=== PATIENT | male | born 2005 | race Caucasian/White ===

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

== ENCOUNTER 2025-08-28 22:10 | Emergency (ER) | payer BC, SELFPAY ==
[2025-08-28 22:10] VITALS: BP 164/89; PULSE 82; RESP 18; TEMP 36.8; O2SAT 99; BMI 29.7
[2025-08-28 22:35] VITALS: O2SAT 98
--- NOTE | 2025-08-28 22:35 | EKG12_ITS ---
Test Reason : CP Blood Pressure : */* mmHG Vent. Rate : 80 BPM Atrial Rate : 80 BPM P-R Int : 150 ms QRS Dur : 92 ms QT Int : 376 ms P-R-T Axes : 46 30 34 degrees QTcB Int : 433 ms Normal sinus rhythm Normal ECG Confirmed by Bhavik Chung ([id number]), web content editor GENET HAYDEN ([id number]) on 08/29/2025 8:34:36 AM Referred By: UG Confirmed By: Bhavik Chung
--- NOTE | 2025-08-28 22:36 | ED.VIS.CHEST ---
HPI History of Present Illness Chief Complaint: Chest Pain Informant: patient and parent Onset/Context/Timing Onset: Today Activity at onset: gradual Timing: Continuous Quality: Positive for Pain, Sharp and Stabbing Location: Left Parasternal Current Severity: Mild Maximum Severity: Mild Worsened By: Nothing Relieved By: Nothing Associated Symptoms: Positive for Dyspnea; Negative for Nausea, Vomiting, Cough, Fever, Lightheadedness, Acid Reflux or Palpitations Narrative Narrative: 20-year-old male history of ADHD. No prior cardiac history. States today while at the [employer] game at rest he got left-sided chest pain radiates to his neck and shoulder. Mild shortness of breath. No nausea no diaphoresis. Nonexertional. He said it is 1 or 2 other times. No history of DVT or PE does travel sometimes for work to [place]. He denies any calf pain or swelling. The pain is not pleuritic. Nothing particular makes it better or worse. He has never had pericarditis. He denies any fever chills or recent illness. He does take testosterone. Prior Similar Symptoms: Yes Recent Illness/Hospitalization: No CVD Risk Factors: Negative for Hypertension, Diabetes, Hypercholesterolemia, Family History 1' </=55 or Smoking PE Risk Factors: Positive for Recent Travel/Surgery; Negative for Recent Immobilization, Prior DVT or PE, Cancer or OCP + Smoking + >/=35 TAD Risk Factors: Negative for Marfan's Syndrome [facility] Medical History (Updated 08/28/25 @ 23:02 by Sejal Lujan) Testicular cancer ADHD SLAP lesion of right shoulder Hx of fracture of arm Home Medications ?Medication ?Instructions ?Recorded ?Last Taken ?Type testosterone cypionate 200 mg/mL 400 mg IM MOTH 08/28/25 Unknown History intramuscular syringe (Azmiro) Allergy/AdvReac Type Severity Reaction Status Date / Time No Known Allergies Allergy Verified 08/28/25 22:11 Family History Grandfather Heart disease Grandmother Breast cancer Social History household members: family Smoking Status: Never smoker alcohol intake: never ROS ROS ED ROS Narrative Nonexertional chest pain. No recent illness. Constitutional Constitutional ED: Denies chills or fever(s) Eyes Eyes: Reports none ENT ENT ED: Denies ear pain Cardiovascular Cardiovascular: Reports as per HPI and chest pain; Denies palpitations or racing heartbeat Respiratory/Chest Respiratory/Chest: Reports dyspnea; Denies cough Gastrointestinal Gastrointestinal: Denies abdominal pain, constipation, diarrhea, melena, nausea or vomiting Genitourinary Genitourinary ED: Denies dysuria or hematuria Musculoskeletal Musculoskeletal: Denies arthralgias Integumentary Denies abscess Neurologic Neurologic: Denies headache(s) Psychiatric Psychiatric: Denies anxiety Endocrine Endocrinology: Denies cold intolerance Hematologic/Lymphatic Hematologic/Lymphatic: Denies easy bleeding or easy bruising Allergic/Immunologic Allergic/Immunologic ED: Denies mouth swelling, tongue swelling or urticaria EXAM Physical Exam Narrative Exam Narrative: Well-appearing 20-year-old male accompanied by his mom vital signs are stable afebrile. Pulse ox 99% on room air no hypoxia. He is in no distress he clinically looks well. H EENT exam pupils round react light. Moist mucous membranes. Neck nontender no JVD. No lymphadenopathy. Back nontender. Lungs clear to auscultation bilaterally. Heart regular rhythm no murmur. Rate about 80. Chest wall and ribs nontender. No ecchymosis or bruising. No rash. No reproducible pain. Abdomen soft, nontender, nondistended, normal bowel sounds without peritoneal signs. Moving all 4 extremities. Calves are nontender without edema or cords. Equal symmetrical radial pulses. 5-5 door trimmer strength. Dorsi plantarflexion intact. Neurologically he is awake alert. Answering questions following commands. Const Vital Signs: 08/28/25 22:10 08/28/25 22:35 08/28/25 23:03 Temperature 98.2 F Temperature Source Oral Pulse Rate 82 Respiratory Rate 18 Respiratory Effort Normal Non-Labored Blood Pressure 164/89 H Blood Pressure Mean 114 Pulse Ox 99 98 Oxygen Delivery Method Room Air Room Air 08/28/25 23:10 Temperature Temperature Source Pulse Rate 63 Respiratory Rate 17 Respiratory Effort Blood Pressure 128/94 H Blood Pressure Mean 105 Pulse Ox 97 Oxygen Delivery Method Room Air MDM MDM MDM Narrative Medical decision making narrative: 20-year-old male atypical nonreproducible chest pain. No cardiac history and no significant cardiac history except in a grandfather. Is not exertional. No history of DVT or PE. Only risk factors he does travel for work. Cardiac workup with a D-dimer obtained. Repeat exam patient doing well around 12:05 PM. Went over his test results. Discussed with both he and his mom. Repeat exam is normal and unchanged. Lungs are clear. Heart regular rhythm no murmur. I explained him I do not a specific cause for his pain but it does not appear to be a blood clot or cardiac in nature. They are comfortable being discharged home. Motrin for pain. Outpatient follow-up. History & Record Review Discussion w/independent historian: Patient and Family Additional record(s) reviewed:: Prior outpatient record, Prior ED visit and Prior labs Lab Data Attestation: I reviewed the patient's lab results. Lab results narrative: CBC normal. White count 6. H&H of 15 and 47. Platelets 175. Electrolytes unremarkable gap 9. Normal BUN and creatinine. Glucose 109. Troponin is normal also less than 0.27. Troponin 6. Chest x-ray is normal. Labs: Laboratory Results - last 24 hr 08/28/25 22:46 WBC 6.1 RBC 5.21 Hgb 15.8 Hct 47.2 MCV 90.6 MCH 30.3 MCHC 33.5 RDW Std Deviation 40.5 RDW Coeff of [place] 12.2 Plt Count 175 MPV 9.8 Immature Gran % (Auto) 0.200 Neut % (Auto) 62.2 Lymph % (Auto) 27.8 Person % (Auto) 8.0 Eos % (Auto) 1.1 Baso % (Auto) 0.7 Absolute Neuts (auto) 3.8 Absolute Lymphs (auto) 1.69 Nucleated RBC % 0 Sodium 140 Potassium 4.1 Chloride 103 Carbon Dioxide 28.1 Anion Gap 9 BUN 11 Creatinine 1.16 Estim Creat Clear Calc 109.88 Est GFR (MDRD) Non-Af 92 BUN/Creatinine Ratio 9.8 L Glucose 109 H Calcium 9.3 Troponin T High Sens 6 Radiography Chest X-Ray - ED: 2 View, Read by ED Physician, Read by Radiologist, Normal, Heart, Lungs, Mediastinum, Bony Structures and No Acute Disease Diagnostic Testing: Clinical Impression(s) from Imaging Studies Chest X-Ray 08/28/25 22:50 IMPRESSION: No focal consolidations. Reading Location: [id number] Chest x-ray, 2 views, AP lateral, interpreted both by myself and radiology shows no acute abnormality. Normal cardiac silhouette. Normal mediastinum. Normal lung matt. No pneumothorax. No acute bony abnormalities. Rhythm Strip Rhythm Strip: Sinus Rhythm Rate: 80 Ectopy: None EKG Initial EKG: Attestation: I personally reviewed and interpreted this EKG as follows: Interpretation: Sinus Rhythm and No Acute Injury Pattern Comments: Normal sinus rhythm rate 80 no acute signs of KS or anemia. No S1Q3T3 T3. Discharge Plan Triage Chief Complaint: Chest Pain ED Provider: Bryan Chau Dx/Rx/DC Orders Clinical Impression: Chest pain Instructions: ED Chest Pain, Uncertain Cause Prescriptions: No Action Azmiro 200 mg/mL syringe 400 mg IM MOTH Primary Care Provider: Care Physician,No Primary Referrals: Balbina Mejia MD [Non-Staff, Pediatrics] - 3-5 Days if not improving Care Physician,No Primary [Primary Care Provider, Medical] Activity Restrictions/Additional Instructions: Your tests, EKG and chest x-ray all look good tonight. No specific cause for your discomfort. Motrin for pain. If not improving follow-up with your primary care physician. Print Language: Trinid[place] Disposition Disposition: Home, Self Care
--- NOTE | 2025-08-28 22:50 | RAD_ITS ---
PROCEDURE: CHEST PA AND LATERAL 08/28/2025 REASON FOR EXAM: CHEST PAIN TECHNIQUE: Procedure Code: RADCXR Modality: DX Procedure: CHEST PA AND LATERAL FINDINGS: No focal consolidation. No pleural effusion or pneumothorax. Cardiac silhouette is within normal limits. No acute fractures. RAD/Chest PA and Lateral IMPRESSION: No focal consolidations. Reading Location: [id number]
[2025-08-28 22:55] LABS: Hematocrit 47.2 % (40-54); Hemoglobin 15.8 g/dL (13.0-16.5); Immature Granulocytes Count 0.010 X10^3/uL (0.0-0.0); Mean Corp Hgb Conc 33.5 g/dL (32-36); Mean Corpuscular Volume 90.6 fL (80-94); Mean Platelet Vol. 9.8 fl (6.2-12.0); NRBC Flagged by Analyzer 0 % (0-5); Platelet Count 175 K/mm3 (150-450); RBC Distribution Width CV 12.2 % (11.6-14.6); RBC Distribution Width SD 40.5 fl (35.1-43.9); Red Blood Count 5.21 M/mm3 (4.6-6.2); White Blood Count 6.1 K/mm3 (4.4-11.0)
--- OUTSIDE RECORDS SUMMARY | 2025-08-28 23:05 | XMS RPT_ITS | CCD ---
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 Leslie Mejia Primary Care Provider Dr. Leslie Mejia Referring Provider MD Akhil Banerjee Attending Provider Leslie Mejia MD Primary Care Provider Akhil Banerjee Attending Unavailable Roberto, Leslie Primary Care Unavailable Roberto, Leslie Referring Unavailable Roberto, Leslie Primary Care Unavailable Edward Arcos Attending Unavailable Edward Arcos Referring Unavailable Roberto, Leslie Primary Care Unavailable Mauricio Richards Attending Unavailable Roberto PEREZ, Leslie Primary Care Provider ROBERTO, LESLIE Primary Care Unavailable ROBERTO, LESLIE Referring Unavailable ROBERTO, LESLIE Primary Care Unavailable ROBERTO, LESLIE Attending Unavailable ROBERTO, LESLIE Primary Care Unavailable ROBERTO, LESLIE Attending Unavailable ROBERTO, LESLIE Primary Care Unavailable ROBERTO, LESLIE Attending Unavailable Medications Current Medications Medication Drug Class(es) Dates Sig (Normalized) Sig (Original) 24 hr amphetamine aspartate 5 mg / amphetamine sulfate 5 mg / dextroamphetamine saccharate 5 mg / dextroamphetamine sulfate 5 mg extended release oral capsule (20 sources) Central Nervous System Stimulant Start: 01-19-2024 End: 05-06-2024 take 1 tablet by mouth once daily dextroamphetamine- amphetamine (ADDERALL) 5 mg tablet Indications: Attention deficit hyperactivity disorder (ADHD), combined type Take 1 tablet by mouth once daily for 30 days. 30 tablet 0 01/19/2024 05/06/2024 Discontinued Start: 05-21-2022 dextroamphetam ine-amphetamine (ADDERALL) 20 mg tablet Take by mouth. 0 05/21/2022 Active Start: 09-06-2021 End: 08-04-2024 amphetamine-dextroamphetamin e XR (ADDERALL XR) 20 mg capsule Indications: Attention deficit hyperactivity disorder (ADHD), combined type Take 1 capsule by mouth once daily for 30 days. Patient should start on July 05, 2024. 30 capsule 0 07/05/2024 08/04/2024 Active Comment on above: Take 1 capsule by mo uth once daily for 30 days. Take 1 capsule by mo uth once daily for 30 days. Do not start before June 15, 2022. Take 1 capsule by mo uth once daily for 30 days. Do not start before July 15, 2022. Take 1 capsule by mo uth once daily for 30 days. Do not start before December 05, 2021. Take 1 capsule by mo uth once daily for 30 days. Do not start before January 04, 2022. Take 1 capsule by mo uth once daily for 30 days. Do not start before December 25, 2022. Take 1 capsule by mo uth once daily for 30 days. Do not start before January 24, 2023. Take 1 capsule by mo uth once daily for 30 days. Do not start before April 27, 2023. Take 1 capsule by mo uth once daily for 30 days. Do not start before March 28, 2023. Take 1 capsule by mo uth once daily for 30 days. Do not start before August 28, 2023. Take 1 capsule by mo uth once daily for 30 days. Do not start before September 27, 2023. Take 1 capsule by mo uth once daily for 30 days. Do not start before December 28, 2023. Take 1 capsule by mo uth once daily for 30 days. Do not start before November 27, 2023. cephalexin 500 mg oral capsule (1 source) Cephalosporin Antibacterial Start: 07-29-20 End: 08-05-20 take 1 capsule by mouth three times daily cephALEXin (KEFLEX) 500 mg capsule Indications: Local infection of skin and subcutaneous tissue Take 1 capsule by mouth three times a day for 7 days. 21 capsule 0 07/29/2023 08/05/2023 Active Comment on above: Take 1 capsule by mo uth three times a day for 7 days. erythromycin 0.005 mg/mg ophthalmic ointment (1 source) Macrolide, Macrolide Antimicrobial Start: 11-13-19 Erythromycin Active 1 APPLIC RIGHT EYE EVERY 6 HOURS 3.5 5 November 13, 2023 12:00am Completed/Discontinued Medications Medication Drug Class(es) Dates Sig (Normalized) Sig (Original) acetaminophen 24 mg/ml / codeine phosphate 2.4 mg/ml oral solution (6 sources) Opioid Agonist Start: 03-29-2016 End: 06-11-2019 take 1 mL by mouth every four hours as needed Acetaminophen-Codein e Discontinued 12.5 ML PO EVERY 4 HOURS NEEDED 7 March 28, 2016 11:00pm June 11, 2019 6:31am acetaminophen 21.7 mg/ml / HYDROcodone bitartrate 0.5 mg/ml oral solution (3 sources) Opioid Agonist Start: 03-28-2016 End: 06-11-2019 take 1 mL by mouth every four hours as needed Hydrocodone-Acetamin ophen Discontinued 5 ML PO EVERY 4 HOURS NEEDED 120 March 27, 2016 11:00pm June 11, 2019 6:31am causes drowsiness omeprazole 20 mg disintegrating oral tablet (1 source) Proton Pump Inhibitor Start: 09-17-2019 End: 05-16-2022 take 1 tablet by mouth once daily omeprazole 20 mg disintegrating tablet (PriLOSEC) Take 1 tablet by mouth once daily. 30 tablet 1 09/17/2019 05/16/2022 Discontinued Comment on above: Take 1 tablet by radha th once daily. Problems Active Problems Problem Classification Problem Date Documented Date Episodic/Chronic Abdominal pain (3 sources) Abdominal pain; Translations: [Unspecified abdominal pain] 05-30-2022 Episodic Attention-deficit, conduct, and disruptive behavior disorders (13 sources) Attention deficit hyperactivity disorder, combined type; Translations: [Attention-deficit hyperactivity disorder, combined type] Onset: 05-06-2024 Chronic Attention-deficit, conduct, and disruptive behavior disorders (1 source) Attention-deficit hyperactivity disorder, combined type; Translations: [Attention deficit hyperactivity disorder (ADHD), combined type] Onset: 05-06-2024 Chronic Immunizations and screening for infectious disease (1 source) Patient encounter status; Translations: [Encounter for immunization] Episodic Malaise and fatigue (2 sources) Fatigue; Translations: [Other fatigue] Onset: 05-06-2024 05-06-2024 Episodic Other injuries and conditions due to external causes (1 source) Injury of eye region; Translations: [Unspecified injury of unspecified eye and orbit, initial encounter] 11-13-2023 Episodic Other injuries and conditions due to external causes (1 source) Unspecified injury of left eye and orbit, initial encounter; Translations: [Unspecified injury of left eye and orbit, initial encounter] Onset: 11-19-2023 Episodic Other lower respiratory disease (3 sources) Rib pain; Translations: [Pleurodynia] 06-11-2019 Episodic Skin and subcutaneous tissue infections (1 source) Localized infection of skin AND/OR subcutaneous tissue; Translations: [Local infection of the skin and subcutaneous tissue, unspecified] 07-29-2023 Episodic Superficial injury; contusion (3 sources) Contusion of scapular region; Translations: [Contusion of left shoulder, initial encounter] 06-11-2019 Episodic Past or Other Problems Problem Classification Problem Date Documented Date Episodic/Chronic Esophageal disorders (3 sources) Gastroesophageal reflux disease; Translations: [Gastro-esophageal reflux disease without esophagitis] Onset: 09-17-2019 Resolved: 11-05-2021 11-05-2021 Chronic Intracranial injury (14 sources) Concussion with no loss of consciousness; Translations: [Concussion without loss of consciousness, initial encounter] Onset: 10-31-2016 Resolved: 01-19-2024 10-31-2016 Episodic Other bone disease and musculoskeletal deformities (3 sources) Costal chondritis; Translations: [Chondrocostal junction syndrome [Tietze]] Onset: 09-17-2019 Resolved: 05-16-2022 05-16-2022 Episodic Residual codes; unclassified (17 sources) History of orchiectomy; Translations: [Acquired absence of other genital organ(s)] Onset: 11-05-2021 Resolved: 01-19-2024 Episodic Sprains and strains (5 sources) Injury of superior glenoid labrum of shoulder joint; Translations: [Superior glenoid labrum lesion of right shoulder, initial encounter] Onset: 06-16-2023 06-12-2023 Episodic Results Test Name Value Interpretation Reference Range Facility [facility] SEKOU SHEN ([id number]) 5 M Date Time Provider Department 05/07/24 LESLIE MEJIA During your visit today, we recorded the following information about you: Leslie Mejia MD 05/07/2024 1:21 PM Addendum Please notify patient that his labs are reassuring. He definitely is not anemic or iron deficient. His thyroid levels are normal. He does not have evidence of mono. I recommend following up in 6 wks if symptoms are not improving. As we had discussed, I recommend stopping the pre-workout for now MD Rian Howard Linda, MA 05/07/2024 8:08 AM Signed Left message to call the office. MARC Bell Cherryle, RN 05/07/2024 1:24 PM Signed message left for patient to call office (home number [phone]) MALIK Pena Cherryle, RN 05/12/2024 10:37 AM Signed message left for patient to call office MALIK Pena Cherryle, RN 05/14/2024 3:22 PM Signed patient aware and verbalizes understanding Salma Vizcarra RN Allergies As of Date: 05/07/2024 (No Known Allergies) Date Reviewed: 05/06/2024 Reviewed by: Michaelle Modi MA - Fully Assessed Reason for Visit: Results [95] Prescriptions as of 05/14/2024 - dextroamphetamine-amph etamine (ADDERALL) 20 mg tablet Take by mouth. - amphetamine-dextroamph etamine XR (ADDERALL XR) 20 mg capsule Take 1 capsule by mouth once daily for 30 days. - amphetamine-dextroamph etamine XR (ADDERALL XR) 20 mg capsule Take 1 capsule by mouth once daily for 30 days. Patient should start on June 05, 2024. - amphetamine-dextroamph etamine XR (ADDERALL XR) 20 mg capsule Take 1 capsule by mouth once daily for 30 days. Patient should start on July 05, 2024. - amphetamine-dextroamph etamine XR (ADDERALL XR) 20 mg capsule Take 1 capsule by mouth once daily for 30 days. Do not start before March 19, 2024. Problem List As Of Date 05/07/2024 Noted Resolved Concussion without loss of consciousness [S06.0*10/31/2016 01/19/2024 Gastroesophageal reflux disease [K21.9] 09/17/2019 11/05/2021 Costochondritis [M94.0] 09/17/2019 05/16/2022 H/O unilateral orchiectomy [Z90.79] 11/05/2021 01/19/2024 Attention deficit hyperactivity disorder (ADHD)*05/06/2024 Encounter Status:Closed by SALMA VIZCARRA on 05/14/24 Normal [facility] CBC W Auto Differential pane l (Bld)on 05-06-2024 Basophils (Bld) [#/Vol] 0.06 10*3/uL Normal <0.11 [facility] Comment on above: Order Comment: Speci men Type: BLOOD SPECIMEN Ordering Facility: [facility] Address: [address] [place] [address] Performed By: #### 5 7021-8 #### [facility] CLIA [id number] [address] [place] [address] [place] Basophils/100 WBC (Bld) 0.8 % Normal [facility] Comment on above: Order Comment: Speci men Type: BLOOD SPECIMEN Ordering Facility: [facility] Address: [address] [place] [address] Performed By: #### 5 7021-8 #### [facility] CLIA [id number] [address] [place] [address] [place] Differential cell count method Nom (Bld) Auto Normal [facility] Comment on above: Order Comment: Speci men Type: BLOOD SPECIMEN Ordering Facility: [facility] Address: [address] [place], [place] [id number] Performed By: #### 5 7021-8 #### [facility] CLIA [id number] [address] [place] [address] [place] Eosinophils (Bld) [#/Vol] 0.12 10*3/uL Normal <0.46 [facility] Comment on above: Order Comment: Speci men Type: BLOOD SPECIMEN Ordering Facility: [facility] Address: [address] [place] [address] Performed By: #### 5 7021-8 #### [facility] CLIA [id number] [address] [place] [address] [place] Eosinophils/100 WBC (Bld) 1.6 % Normal [facility] Comment on above: Order Comment: Speci men Type: BLOOD SPECIMEN Ordering Facility: [facility] Address: [address] [place] [address] Performed By: #### 5 7021-8 #### [facility] CLIA [id number] [address] [place] [address] [place] Erythrocyte distribution width (RBC) [Ratio] 11.7 % Normal 11.5-15.0 [facility] Comment on above: Order Comment: Speci men Type: BLOOD SPECIMEN Ordering Facility: [facility] Address: [address] [place] [address] Performed By: #### 5 7021-8 #### [facility] CLIA [id number] [address] [place] [address] [place] Hematocrit (Bld) [Volume fraction] 49.3 % Normal 39.0-51.0 [facility] Comment on above: Order Comment: Speci men Type: BLOOD SPECIMEN Ordering Facility: [facility] Address: [address] [place] [address] Performed By: #### 5 7021-8 #### [facility] CLIA [id number] [address] [id number] [address] [place] Hemoglobin (Bld) [Mass/Vol] 17.1 g/dL High 13.0-17.0 [facility] Comment on above: Order Comment: Speci men Type: BLOOD SPECIMEN Ordering Facility: [facility] Address: [address] [place] [address] Performed By: #### 5 7021-8 #### [facility] CLIA [id number] [address] [place] [address] [place] Immature granulocytes (Bld) [#/Vol] 10*3/uL Normal <0.10 [facility] Comment on above: Order Comment: Speci men Type: BLOOD SPECIMEN Ordering Facility: [facility] Address: [address] [place] [address] Performed By: #### 5 7021-8 #### [facility] CLIA [id number] [address] [place] [address] [place] Immature granulocytes/100 WBC (Bld) 0.3 % Normal [facility] Comment on above: Order Comment: Speci men Type: BLOOD SPECIMEN Ordering Facility: [facility] Address: [address] [place] [address] Performed By: #### 5 7021-8 #### [facility] CLIA [id number] [address] [place] [address] [place] Lymphocytes (Bld) [#/Vol] 1.93 10*3/uL Normal 1.00-4.00 [facility] Comment on above: Order Comment: Speci men Type: BLOOD SPECIMEN Ordering Facility: [facility] Address: [address] [place] [address] Performed By: #### 5 7021-8 #### [facility] CLIA [id number] [address] [place] [address] [place] Lymphocytes/100 WBC (Bld) 25.2 % Normal [facility] Comment on above: Order Comment: Speci men Type: BLOOD SPECIMEN Ordering Facility: [facility] Address: [address] [place] [address] Performed By: #### 5 7021-8 #### [facility] CLIA [id number] [address] [place] [address] [place] MCH (RBC) [Entitic mass] 30.6 pg Normal 26.0-34.0 [facility] Comment on above: Order Comment: Speci men Type: BLOOD SPECIMEN Ordering Facility: [facility] Address: [address] [place] [address] Performed By: #### 5 7021-8 #### [facility] CLIA [id number] [address] [place] [address] [place] MCHC (RBC) [Mass/Vol] 34.7 g/dL Normal 30.5-36.0 [facility] Comment on above: Order Comment: Speci men Type: BLOOD SPECIMEN Ordering Facility: [facility] Address: [address] [place] [address] Performed By: #### 5 7021-8 #### [facility] CLIA [id number] [address] [place] [address] [place] MCV (RBC) [Entitic vol] 88.2 fL Normal 80.0-100.0 [facility] Comment on above: Order Comment: Speci men Type: BLOOD SPECIMEN Ordering Facility: [facility] Address: [address] [place] [address] Performed By: #### 5 7021-8 #### [facility] CLIA [id number] [address] [place] [address] [place] Monocytes (Bld) [#/Vol] 0.57 10*3/uL Normal <0.87 [facility] Comment on above: Order Comment: Speci men Type: BLOOD SPECIMEN Ordering Facility: [facility] Address: [address] [place] [address] Performed By: #### 5 7021-8 #### [facility] CLIA [id number] [address] [place] [address] [place] Monocytes/100 WBC (Bld) 7.4 % Normal [facility] Comment on above: Order Comment: Speci men Type: BLOOD SPECIMEN Ordering Facility: [facility] Address: [address] [place] [address] Performed By: #### 5 7021-8 #### [facility] CLIA [id number] [address] [place] [address] [place] Neutrophils (Bld) [#/Vol] 4.96 10*3/uL Normal 1.45-7.50 [facility] Comment on above: Order Comment: Speci men Type: BLOOD SPECIMEN Ordering Facility: [facility] Address: [address] [place] [address] Performed By: #### 5 7021-8 #### [facility] CLIA [id number] [address] [place] [address] [place] Neutrophils/100 WBC (Bld) 64.7 % Normal [facility] Comment on above: Order Comment: Speci men Type: BLOOD SPECIMEN Ordering Facility: [facility] Address: [address] [place] [address] Performed By: #### 5 7021-8 #### [facility] CLIA [id number] [address] [place] [address] [place] Nucleated RBC (Bld) [#/Vol] 10*3/uL Normal <0.01 [facility] Comment on above: Order Comment: Speci men Type: BLOOD SPECIMEN Ordering Facility: [facility] Address: [address] [place] [address] Performed By: #### 5 7021-8 #### [facility] CLIA [id number] [address] [place] [address] [place] Nucleated RBC/100 WBC (Bld) [Ratio] 0.0 /100 WBC Normal [facility] Comment on above: Order Comment: Speci men Type: BLOOD SPECIMEN Ordering Facility: [facility] Address: [address] [place] [address] Performed By: #### 5 7021-8 #### [facility] CLIA [id number] [address] [place] [address] [place] Platelet mean volume (Bld) [Entitic vol] 10.4 fL Normal 9.0-12.7 [facility] Comment on above: Order Comment: Speci men Type: BLOOD SPECIMEN Ordering Facility: [facility] Address: [address] [place] [address] Performed By: #### 5 7021-8 #### [facility] CLIA [id number] [address] [place] [address] [place] Platelets (Bld) [#/Vol] 158 10*3/uL Normal 150-400 [facility] Comment on above: Order Comment: Speci men Type: BLOOD SPECIMEN Ordering Facility: [facility] Address: [address] [place] [address] Performed By: #### 5 7021-8 #### [facility] CLIA [id number] [address] [place] [address] [place] RBC (Bld) [#/Vol] 5.59 10*6/uL Normal 4.20-6.00 [facility] Comment on above: Order Comment: Speci men Type: BLOOD SPECIMEN Ordering Facility: [facility] Address: [address] [place] [address] Performed By: #### 5 7021-8 #### [facility] CLIA [id number] [address] [place] [address] [place] WBC (Bld) [#/Vol] 7.66 10*3/uL Normal 3.70-11.00 [facility] Comment on above: Order Comment: Speci men Type: BLOOD SPECIMEN Ordering Facility: [facility] Address: [address] [place] [address] Performed By: #### 5 7021-8 #### [facility] EDU [id number] [address] [place] [address] [place] [address] [place] CNOVon 05-06-2024 CNOV Office Visit (PEDSWS ) SEKOU SHEN ([id number]) 5 M Date Time Provider Department 05/06/24 4:30 PM LESLIE MEJIA During your visit today, we recorded the following information about you: Temperature Pulse Respiration Blood pressure 98.6 degrees 64/minute 12/minute 128/76 Weight 89.4 kg Leslie Mejia MD 05/06/2024 5:01 PM Signed Patient brought in today by self presents today with daytime fatigue for the past two months. Despite getting an adequate amount of hours of sleep per night, he feels tired all day. Sleep - often hard to fall asleep, but feels he sleeps well once asleep. Doesn't nap. No snoring. No falling asleep during the daytime Caffeine - drinks a red-bull in the morning and pre-workout (170mg caffeine) at 4pm Takes adderall xr early in the morning. 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 Mood - has been more irritable lately. Mother has suggested that he could be depressed, but Obed doesn't think he is. Exercise - lifts heavy weights for two hours a day. Has not become weaker. Diet - eats a good deal of chicken, eats red meat once a week Muscles have been sore lately, and he feels this is out of proportion to his workouts. ROS Gen; no fever or weight loss HEENT: neg Resp; neg CV:neg GI; neg MS: sore muscles lately Skin: splotchy, purple'angelina rash at back recently PAST MEDICAL HISTORY 11/05/2021: H/O unilateral orchiectomy Comment: Left, at 6yo No date: NEGATIVE MEDICAL HISTORY Current Outpatient Medications on File Prior to Visit Medication Sig dextroamphetamine-amph etamine (ADDERALL) 20 mg tablet Take by mouth. amphetamine-dextroamph etamine XR (ADDERALL XR) 20 mg capsule Take 1 capsule by mouth once daily for 30 days. Do not start before March 19, 2024. No current facility-administered medications on file prior to visit. FMH: no known autoimmune problems GENERAL: alert and active in no apparent distress EYES: conjunctiva clear, no drainage EARS: Right color pale, light reflex normal, Left color pale, light reflex normal NOSE/SINUSES : negative OROPHARYNX:moist mucous membranes, tonsils without hypertrophy, and no exudates present NECK: supple, no adenopathy CARDIOVASCULAR : Regular Rate and Rhythm without murmurs or clicks LUNGS: clear to auscultation ABDOMEN : Abdomen is soft, nontender, without organomegaly or masses. MUSCULOSKELETAL: Extremities with FROM and no problems identified. SKIN : normal color, no jaundice or rash ASSESSMENT/ PLAN: Fatigue - will check screening labs. If negative, suspect pre-workout and/or working in the heat as contributing factors. I would recommend holding the preworkout and seeing how he feels in 6 wks, as the weather will be cooling by that time. Leslie Mejia MD Allergies As of Date: 05/06/2024 (No Known Allergies) Date Reviewed: 05/06/2024 Reviewed by: Michaelle Modi MA - Fully Assessed Reason for Visit: Fatigue [46] Cmt: X 2 months Would like labs Primary Visit Diagnosis:Fatigue, unspecified type [R53.83] Other Visit Diagnosis:Attention deficit hyperactivity disorder (ADHD), combined type [F90.2] Order(s):FERRITIN [SQFERR] Order #: [id number] FUTURE IRON AND TIBC [SQIRON] Order #: [id number] FUTURE COMPLETE BLOOD COUNT AND DIFFERENTIAL [SQCBCDIF] Order #: [id number] FUTURE TOMAS-DE OLIVEIRA VCA IGG [SQEBVG] Order #: [id number] FUTURE TOMAS-DE OLIVEIRA VCA IGM [SQEBVM] Order #: [id number] FUTURE C-REACTIVE PROTEIN [SQCRP] Order #: [id number] FUTURE SEDIMENTATION RATE, WESTERGREN [SQWSR] Order #: [id number] FUTURE COMPREHENSIVE METABOLIC PANEL [SQCMP] Order #: [id number] FUTURE THYROID STIMULATING HORMONE [SQTSH] Order #: [id number] FUTURE T4 FREE/FREE THYROXINE [SQFT4] Order #: [id number] FUTURE amphetamine-dextroamph etamine XR (ADDERALL XR) 20 mg capsuleTake 1 capsule by mouth once daily for 30 days.Disp: 30 capsuleRfl: 0 [START ON 06/05/2024] amphetamine-dextroamph etamine XR (ADDERALL XR) 20 mg capsuleTake 1 capsule by mouth once daily for 30 days. Patient should start on June 05, 2024.Disp: 30 capsuleRfl: 0 [START ON 07/05/2024] amphetamine-dextroamph etamine XR (ADDERALL XR) 20 mg capsuleTake 1 capsule by mouth once daily for 30 days. Patient should start on July 05, 2024.Disp: 30 capsuleRfl: 0 Prescriptions as of 05/06/2024 - dextroamphetamine-amph etamine (ADDERALL) 20 mg tablet Take by mouth. - amphetamine-dextroamph etamine XR (ADDERALL XR) 20 mg capsule Take 1 capsule by mouth once daily for 30 days. - amphetamine-dextroamph etamine XR (ADDERALL XR) 20 mg capsule Take 1 capsule by mouth once daily for 30 days. Patient should start on June 05, 2024. - amphetamine-dextroamph etamine XR (ADDERALL XR) 20 mg capsule Take 1 capsule by mouth once daily for 30 days. Patient should start on July 05, 2024. (more content not included)... Normal [facility] CRP SerPl-mCncon 05-06-2024 CRP [Mass/Vol] mg/L Normal <0.9 [facility] [facility] Comment on above: Order Comment: Speci men Type: BLOOD SPECIMEN Ordering Facility: [facility] Address: [address] [place] [address] Performed By: #### 1 988-5, 2276-4 #### [facility] CLIA [id number] [address] [place] [address] [place] Comprehensive metabolic 2000 panelon 05-06-2024 Albumin [Mass/Vol] 4.7 g/dL Normal 3.9-4.9 [facility] Comment on above: Order Comment: Speci men Type: BLOOD SPECIMEN Ordering Facility: [facility] Address: [address] [place] [address] Performed By: #### 5 0190-8, 77740-2, 3016-3, 3024-7 #### [facility] CLIA [id number] [address] [place] [address] [place] ALP [Catalytic activity/Vol] 120 U/L Normal 55-149 [facility] Comment on above: Order Comment: Speci men Type: BLOOD SPECIMEN Ordering Facility: [facility] Address: [address] [place] [address] Performed By: #### 5 0190-8, 52747-7, 3016-3, 3024-7 #### [facility] CLIA [id number] [address] [place] [address] [place] ALT [Catalytic activity/Vol] 43 U/L Normal 10-54 [facility] Comment on above: Order Comment: Speci men Type: BLOOD SPECIMEN Ordering Facility: [facility] Address: [address] [place] [address] Performed By: #### 5 0190-8, 67340-0, 3016-3, 3024-7 #### [facility] CLIA [id number] [address] [place] [address] [place] Anion gap [Moles/Vol] 14 mmol/L Normal 8-15 [facility] Comment on above: Order Comment: Speci men Type: BLOOD SPECIMEN Ordering Facility: [facility] Address: [address] [place] [address] Performed By: #### 5 0190-8, 57999-4, 3016-3, 3024-7 #### [facility] CLIA [id number] [address] [place] [address] [place] AST [Catalytic activity/Vol] 32 U/L Normal 14-40 [facility] Comment on above: Order Comment: Speci men Type: BLOOD SPECIMEN Ordering Facility: [facility] Address: [address] [place] [address] Performed By: #### 5 0190-8, 52766-1, 3016-3, 302-7 #### [facility] CLIA [id number] [address] [place] [address] [place] Bilirubin [Mass/Vol] 0.3 mg/dL Normal 0.2-1.3 [facility] Comment on above: Order Comment: Speci men Type: BLOOD SPECIMEN Ordering Facility: [facility] Address: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 From: Gilmar Son MD PCP: Dr. Leslie Mejia MD Status: REG CLI Study: Upper Ext Jt W/Contrast Date of Exam: 06/10/23 Exam# [id number] Ordering Dr: Edward Arcos MD STUDY: MRI ARTHROGRAM RIGHT SHOULDER REASON FOR EXAM: Male, 17 years old. PAIN AND WEAKNESS right shoulder , football injury 3 wks ago TECHNIQUE: Intra-articular injection of ml of YES YES mixed with additional contrast material was performed by an on-site physician whose name was not provided. T1, T2, and fat suppressed images were obtained in all three orthogonal planes. COMPARISON: X-ray of the right shoulder dated June 10, 2023 FINDINGS: The contrast is in the subdeltoid region in the anterior aspect of the shoulder joint. No intra-articular contrast is present. Normal supraspinatus tendon. Normal infraspinatus tendon. Normal subscapularis tendon. Normal teres minor tendon. There is no demonstrated tear of the rotator cuff. Normal supraspinatus muscle. Normal infraspinatus muscle. Normal subscapularis muscle. Normal teres minor muscle. Normal glenohumeral articulation. Normal humeral head and visualized proximal humerus. Normal biceps labral complex. Normal intracapsular long biceps tendon. A large SLAP tear is present. Normal inferior aspect of the glenoid labrum. Normal capsulo- ligamentous complex. Normal rotator interval. Normal acromioclavicular articulation. There is a Type II morphology (curved), with a neutral orientation. There is no subacromial-subdeltoid bursal fluid. Normal visualized coracohumeral and coracoacromial ligaments. Normal quadrilateral space. Normal axillary space. Normal deltoid muscle. Normal trapezius muscle MRI/Upper Ext Jt W/Contrast IMPRESSION: 1. Large SLAP tear. Electronically Signed: Gilmar Son MD at 16:03 EDT Reading Location ID and State: [facility] / [place] , Service support , Coding Level of Care Code Off vis,new,level 3 Diagnoses SLAP lesion of right shoulder S43.431A Assessment and Plan Assessment and Plan (1) SLAP lesion of right (more content not included)... Normal [facility] Arthrogram Shoulder w/ MRIon 06-10-2023 Arthrogram Shoulder w/ MRI [facility] [address] [place] [address] Arthrogram Shoulder w/ MRI MR#: [id number] Acct: [id number] Name: SEKOU SHEN Rep #: [id number] : 2005 M 17 From: Caden finley MD PCP: Dr. Leslie Mejia MD Status: REG CLI Study: Arthrogram Shoulder w/ MRI Date of Exam: 06/10 Exam# [id number] Ordering Dr: Edward Arcos MD CLINICAL HISTORY: Male, 17 years old. Right shoulder sprain. PROCEDURE: ARTHROGRAM - RIGHT SHOULDER CONSENT: The procedure is also benefits and possible complications including infection and bleeding were explained to the patient and patient''s mother. Informed consent was obtained. FLUOROSCOPY TIME (if supplied): (78 seconds) minutes/seconds. 14.89 mGy Injection Information: 10 cc of dilute MRI contrast. Number of images obtained: 5 TECHNIQUE: (All elements of maximal sterile barrier technique followed, including US elements as applicable) The patient was in the supine position. The overlying skin was prepped and draped in the usual sterile fashion. Following local anesthetic application and under direct fluoroscopic guidance, a 22-gauge spinal needle was placed into the shoulder joint. 10 cc of dilute MRI contrast was injected. The patient tolerated the procedure well. RAD/Arthrogram Shoulder w/ MRI IMPRESSION: Right shoulder arthrogram for MRI examination. The patient tolerated the procedure well. Electronically Signed: Caden Powell MD at 12:51 EDT , CC: Dr. Leslie Mejia MD; Dr. Edward Arcos MD Pmo Project Manager: Signed Normal [facility] Upper Ext Jt W/Contraston Upper Ext Jt W/Contrast [facility] [address] [place] [address] Upper Ext Jt W/Contrast MR#: [id number] Acct: [id number] Name: SEKOU SHEN Rep #: [id number] : 2005 M 17 From: Gilmar balderas MD PCP: Dr. Leslie Mejia MD Status: REG CLI Study: Upper Ext Jt W/Contrast Date of Exam: 06/10/23 Exam# [id number] Ordering Dr: Edward Arcos MD STUDY: MRI ARTHROGRAM RIGHT SHOULDER REASON FOR EXAM: Male, 17 years old. PAIN AND WEAKNESS right shoulder , football injury 3 wks ago TECHNIQUE: Intra-articular injection of ml of YES YES mixed with additional contrast material was performed by an on-site physician whose name was not provided. T1, T2, and fat suppressed images were obtained in all three orthogonal planes. COMPARISON: X-ray of the right shoulder dated June 10, 2023 FINDINGS: The contrast is in the subdeltoid region in the anterior aspect of the shoulder joint. No intra-articular contrast is present. Normal supraspinatus tendon. Normal infraspinatus tendon. Normal subscapularis tendon. Normal teres minor tendon. There is no demonstrated tear of the rotator cuff. Normal supraspinatus muscle. Normal infraspinatus muscle. Normal subscapularis muscle. Normal teres minor muscle. Normal glenohumeral articulation. Normal humeral head and visualized proximal humerus. Normal biceps labral complex. Normal intracapsular long biceps tendon. A large SLAP tear is present. Normal inferior aspect of the glenoid labrum. Normal capsulo- ligamentous complex. Normal rotator interval. Normal acromioclavicular articulation. There is a Type II morphology (curved), with a neutral orientation. There is no subacromial-subdeltoid bursal fluid. Normal visualized coracohumeral and coracoacromial ligaments. Normal quadrilateral space. Normal axillary space. Normal deltoid muscle. Normal trapezius muscle MRI/Upper Ext Jt W/Contrast IMPRESSION: 1. Large SLAP tear. Electronically Signed: Gilmar Son MD at 16:03 EDT , CC: Dr. Leslie Mejia MD; Dr. Edward Arcos MD Pmo Project Manager: Signed Normal [facility] Absolute lymphocyte counton 05-21-2022 Lymphocytes Auto (Unsp spec) [#/Vol] 1.73 10*3/uL 0.83-4.[address] [facility] Work Phone: Basophil percentageon 2021 Basophil percentage 0 SEEN /hpf 0-5 [facility] Work Phone: Basophils/100 WBC (Bld) 0.4 % 0-[address] [facility] Work Phone: Bilirubin [Mass/Vol] 0.50 mg/dL 0.20-1.00 [facility] Work Phone: Comment on above: For patients on eltr ombopag therapy, use of Dimension [place] TBIL is not recommended. Chloride [Moles/Vol] 108 mmol/L 98-107 [facility] Work Phone: Eosinophils/100 WBC (Bld) 1.6 % 0-[address] [facility] Work Phone: Glucose [Mass/Vol] 101 mg/dL 74-106 [facility] Work Phone: Comment on above: Fasting Glucose resu lt from 100 to 125 mg/dL suggests IMPAIRED HOMEOSTASIS per A.D.A. criteria. Neutrophils (Bld) [#/Vol] 4.4 10*3/uL 2.0-7.[address] [facility] Work Phone: Neutrophils/100 WBC (Bld) 65.5 % 34-[address] [facility] Work Phone: Potassium [Moles/Vol] 3.7 mmol/L 3.5-5.[address] [facility] Work Phone: Protein [Mass/Vol] 7.3 g/dL 6.4-8.2 [facility] Work Phone: Sodium [Moles/Vol] 141 mmol/L 136-145 [facility] Work Phone: WBC (Bld) [#/Vol] 6.7 10*3/uL 4.5-13.0 [facility] Work Phone: Bilirubin Test strip Ql (U)o n 05-21-2022 Bilirubin Ql (U) Negative Negative [facility] Work Phone: Blood erythrocytes count (nu mber/volume)on 05-21-2022 RBC (Bld) [#/Vol] 4.86 10*6/uL 4.5-5.1 [facility] Work Phone: Blood hemoglobin measurement (mass/volume)on 05-21-2022 Hemoglobin (Bld) [Mass/Vol] 14.7 g/dL 13.0-16.[address] [facility] Work Phone: Blood lymphocytes/100 leukoc yteson 05-21-2022 Lymphocytes/100 WBC (Bld) 25.8 % 25-[address] [facility] Work Phone: Blood monocytes/100 leukocyt eson 05-21-2022 Monocytes/100 WBC (Bld) 6.6 % 3-[address] [facility] Work Phone: Blood platelet mean volumeon 05-21-2022 Platelet mean volume (Bld) [Entitic vol] 9.5 fL 6.2-12.[address] [facility] Work Phone: Determination of erythrocyte mean corpuscular volume (MCV)on 05-21-2022 MCV (RBC) [Entitic vol] 87.0 fL 78-[address] [facility] Work Phone: Direct bilirubinon Bilirubin.direct [Mass/Vol] 0.14 mg/dL 0.00-0.[address] [facility] Work Phone: Hematocrit Auto (Bld) [Volum e fraction]on 05-21-2022 Hematocrit (Bld) [Volume fraction] 42.3 % 36-[address] [facility] Work Phone: Ketones Test strip Ql (U)on 05-21-2022 Ketones Ql (U) Negative Negative [facility] Work Phone: Laboratory - Chemistry and C hemistry - challengeon 05-21-2022 ALP [Catalytic activity/Vol] 193 U/L 52-[address] [facility] Work Phone: ALT [Catalytic activity/Vol] 43 U/L 16-[address] [facility] Work Phone: CO2 [Moles/Vol] 27.0 mmol/L 21.0-32.[address] [facility] Work Phone: Globulin (S) [Mass/Vol] 3.3 g/dL 2.2-4.[address] [facility] Work Phone: Lipase [Catalytic activity/Vol] 136 U/L 73-[address] [facility] Work Phone: Urea nitrogen/Creatinine [Mass ratio] 19.5 mg/mg 10-[address] [facility] Work Phone: Laboratory - Hematology and Cell countson 05-21-2022 Erythrocyte distribution width (RBC) [Entitic vol] 38.8 fL 35.1-43.[address] [facility] Work Phone: Erythrocyte distribution width (RBC) [Ratio] 12.2 % 11.6-14.[address] [facility] Work Phone: Immature granulocytes/100 WBC (Bld) 0.100 % 0.0-0.[address] [facility] Work Phone: Comment on above: IG% - Immature Granu locytes (promyelocytes, myelocytes and metamyelocytes) > 1% indicates that a LEFT SHIFT is Present. MCH (RBC) [Entitic mass] 30.2 pg 25.0-35.[address] [facility] Work Phone: Nucleated RBC/100 WBC (Bld) [Ratio] 0 % 0-[address] [facility] Work Phone: MCHC Auto (RBC) [Mass/Vol]on 05-21-2022 MCHC (RBC) [Mass/Vol] 34.8 g/dL 32-[address] [facility] Work Phone: Mucus LM Ql (Urine sed)on Mucus Ql (Urine sed) 0 SEEN /hpf [facility] Work Phone: Nitrite Test strip Ql (U)on 05-21-2022 Nitrite Ql (U) Negative Negative [facility] Work Phone: No Panel Informationon 05-21 Estimated Creatinine Clearance Calc 117.36 ml/min [facility] Work Phone: Estimated GFR (MDRD) Amer [facility] Work Phone: Comment on above: Test not performedAf rican [place] GFR Calc Estimated GFR (MDRD) Non-Af [facility] Work Phone: Comment on above: Test not performedNo n- GFR Calc Platelets bldon 05-21-2022 Platelets (Bld) [#/Vol] 183 10*3/uL 150-[address] [facility] Work Phone: Protein Test strip Ql (U)on 05-21-2022 Protein Ql (U) 15 mg/dl Negative [facility] Work Phone: Serum or plasma albumin eulalia urement (mass/volume)on 05-21-2022 Albumin [Mass/Vol] 4.0 g/dL 3.2-5.0 [facility] Work Phone: Serum or plasma calcium eulalia urement (mass/volume)on 05-21-2022 Calcium [Mass/Vol] 9.1 mg/dL 8.5-10.1 [facility] Work Phone: Serum or plasma creatinine m easurement (mass/volume)on 05-21-2022 Creatinine [Mass/Vol] 0.97 mg/dL 0.70-1.[address] [facility] Work Phone: Comment on above: The validity of the calculated GFR & GFRAA in patients over 70 years has not been determined. Clinical correlation is essential. Serum or plasma urea nitroge n measurement (mass/volume)on 05-21-2022 Urea nitrogen [Mass/Vol] 19 mg/dL 7-[address] [facility] Work Phone: Squamous epithelial cells de tection in urine sediment by light microscopyon 05-21-2022 Epithelial cells.squamous LM Ql (Urine sed) 0-5 SEEN /hpf 0-[address] [facility] Work Phone: Thin prep Papanicolaou smear with manual screeningon 05-21-2022 Thin prep Papanicolaou smear with manual screening 36 U/L 15-[address] [facility] Work Phone: Thin prep Papanicolaou smear with manual screening 6 5-[address] [facility] Work Phone: Urine blood detectionon 04-30 RBC Ql (U) Negative Negative [facility] Work Phone: RBC Ql (U) 0 SEEN /hpf 0-[address] [facility] Work Phone: Urine clarityon 05-21-2022 Clarity (U) Clear Clear [facility] Work Phone: Urine color determinationon 05-21-2022 Color (U) Yellow Yellow [facility] Work Phone: Urine glucose detectionon Glucose Ql (U) Normal mg/dl Normal [facility] Work Phone: Urine leukocyte esterase det ection by dipstickon 05-21-2022 Leukocyte esterase Test strip Ql (U) Negative Negative [facility] Work Phone: Urine pHon 05-21-2022 pH (U) 7.0 [pH] 5.0 - 8.[address] [facility] Work Phone: Urine sediment bacteria coun t by microscopy (number/high power field)on 05-21-2022 Bacteria LM.HPF (Urine sed) [#/Area] 0 /[HPF] None Seen [facility] Work Phone: Urine specific gravity measu rementon 05-21-2022 Specific gravity (U) [Rel density] 1.010 1.002-1.[address] [facility] Work Phone: Urobilinogen Auto test strip Ql (U)on 05-21-2022 Urobilinogen Ql (U) Normal mg/dl Normal [facility] Work Phone: Vital Signs Date Time Vital Sign Value Performing Clinician Facility 05-06-2024 16:28-0400 Body temperature 98.6 [degF] Leslie Mejia MD Work Phone: [facility] 05-06-2024 16:28-0400 Body weight 89.36 kg Leslie Mejia MD Work Phone: [facility] 05-06-2024 16:28-0400 Diastolic blood pressure 76 mm[Hg] Leslie Mejia MD Work Phone: [facility] 05-06-2024 16:28-0400 Heart rate 64 /min Leslie Mejia MD Work Phone: [facility] 05-06-2024 16:28-0400 Respiratory rate 12 /min Leslie Mejia MD Work Phone: [facility] 05-06-2024 16:28-0400 Systolic blood pressure 128 mm[Hg] Leslie Mejia MD Work Phone: [facility] 01-19-2024 14:03-0400 Body height 172.7 cm Leslie Mejia MD Work Phone: [facility] 01-19-2024 14:03-0400 Body mass index (BMI) [Percentile] Per age and sex 95.09 % Leslie Mejia MD Work Phone: [facility] 01-19-2024 14:03-0400 Body mass index (BMI) [Ratio] 29.47 kg/m2 Leslie Mejia MD Work Phone: [facility] 01-19-2024 14:03-0400 Body temperature 97.11 [degF] Leslie Mejia MD Work Phone: [facility] 01-19-2024 14:03-0400 Body weight 87.91 kg Leslie Mejia MD Work Phone: [facility] 01-19-2024 14:03-0400 Diastolic blood pressure 82 mm[Hg] Leslie Mejia MD Work Phone: [facility] 01-19-2024 14:03-0400 Heart rate 60 /min Leslie Mejia MD Work Phone: [facility] 01-19-2024 14:03-0400 Respiratory rate 12 /min Leslie Mejia MD Work Phone: [facility] 01-19-2024 14:03-0400 Systolic blood pressure 128 mm[Hg] Leslie Mejia MD Work Phone: [facility] 11-13-2023 17:18-0500 Body temperature 97.6 [degF] [facility] 11-13-2023 17:18-0500 Diastolic blood pressure 76 mm[Hg] [facility] 11-13-2023 17:18-0500 Heart rate 64 /min [facility] 11-13-2023 17:18-0500 Respiratory rate 14 /min [facility] 11-13-2023 17:18-0500 SaO2% (BldA) [Mass fraction] 99 % [facility] 11-13-2023 17:18-0500 Systolic blood pressure 123 mm[Hg] [facility] 11-13-2023 16:19-0500 Body height 170.18 cm [facility] 11-13-2023 16:19-0500 Body mass index (BMI) [Percentile] Per age and sex 97.5 % [facility] 11-13-2023 16:19-0500 Body mass index (BMI) [Ratio] 31.4 kg/m2 [facility] 11-13-2023 16:19-0500 Body weight 91.17 kg [facility] 07-29-2023 12:42-0400 Body temperature 97.59 [degF] Leslie Mejia MD Work Phone: [facility] 07-29-2023 12:42-0400 Body weight 83.64 kg Leslie Mejia MD Work Phone: [facility] 07-29-2023 12:42-0400 Heart rate 60 /min Leslie Mejia MD Work Phone: [facility] 07-29-2023 12:42-0400 Respiratory rate 16 /min Leslie Mejia MD Work Phone: [facility] 01-06-2023 10:20-0400 Body temperature 98.49 [degF] Lani Woodward MD Work Phone: [facility] 01-06-2023 10:20-0400 Body weight 81.38 kg Lani Woodward MD Work Phone: [facility] 11-25-2022 11:25-0500 Body temperature 97.7 [degF] Leslie Mejia MD Work Phone: [facility] 11-25-2022 11:25-0500 Body weight 78.74 kg Leslie Mejia MD Work Phone: [facility] 11-25-2022 11:25-0500 Diastolic blood pressure 76 mm[Hg] Leslie Mejia MD Work Phone: [facility] 11-25-2022 11:25-0500 Heart rate 72 /min Leslie Mejia MD Work Phone: [facility] 11-25-2022 11:25-0500 Respiratory rate 16 /min Leslie Mejia MD Work Phone: [facility] 11-25-2022 11:25-0500 Systolic blood pressure 120 mm[Hg] Leslie Mejia MD Work Phone: [facility] 05-22-2022 00:31-0400 Diastolic blood pressure 74 mm[Hg] [facility] Work Phone: 05-22-2022 00:31-0400 Heart rate 60 /min [facility] Work Phone: 05-22-2022 00:31-0400 Respiratory rate 15 /min [facility] Work Phone: 05-22-2022 00:31-0400 SaO2% (BldA) [Mass fraction] 99 % [facility] Work Phone: 05-22-2022 00:31-0400 Systolic blood pressure 139 mm[Hg] [facility] Work Phone: 05-21-2022 20:42-0400 Body height 170.18 cm [facility] Work Phone: 05-21-2022 20:42-0400 Body mass index (BMI) [Percentile] Per age and sex 91.2 % [facility] Work Phone: 05-21-2022 20:42-0400 Body mass index (BMI) [Ratio] 26.4 kg/m2 [facility] Work Phone: 05-21-2022 20:42-0400 Body temperature 98.4 [degF] [facility] Work Phone: 05-21-2022 20:42-0400 Body weight 76.6 kg [facility] Work Phone: 05-16-2022 09:56-0400 Body height 172.5 cm Leslie Mejia MD Work Phone: [facility] 05-16-2022 09:56-0400 Body mass index (BMI) [Percentile] Per age and sex 87.88 % Leslie Mejia MD Work Phone: [facility] 05-16-2022 09:56-0400 Body temperature 97.5 [degF] Leslie Mejia MD Work Phone: [facility] 05-16-2022 09:56-0400 Body weight 75.66 kg Leslie Mejia MD Work Phone: [facility] 05-16-2022 09:56-0400 Diastolic blood pressure 68 mm[Hg] Leslie Mejia MD Work Phone: [facility] 05-16-2022 09:56-0400 Heart rate 64 /min Leslie Mejia MD Work Phone: [facility] 05-16-2022 09:56-0400 Respiratory rate 16 /min Leslie Mejia MD Work Phone: [facility] 05-16-2022 09:56-0400 Systolic blood pressure 118 mm[Hg] Leslie Mejia MD Work Phone: [facility] Encounters Encounter Date Encounter Type Care Provider Facility Start: 05-07-2024 Telephone encounter Leslie chen MD Work Phone: [facility] Comment on above: Results Start: 05-06-2024 End: 05-06-2024 Patient encounter procedure Leslie Mejia MD Work Phone: [facility] Comment on above: Fatigue, unspecified type (Primary Dx); Attention deficit hyperactivity disorder (ADHD), combined type Start: 05-06-2024 End: 05-06-2024 ambulatory LESLIE ROBERTO Facility:[facility] Start: 01-19-2024 End: 01-19-2024 ambulatory [facility] Facility:[facility] Start: 01-19-2024 Encounter for routin e child health examination without abnormal findings LESLIE MEJIA [facility] Start: 01-19-2024 End: 01-19-2024 Patient encounter procedure Leslie Mejia MD Work Phone: [facility] Comment on above: Encounter for routin e child health examination w/o abnormal findings (Primary Dx); Attention deficit hyperactivity disorder (ADHD), combined type Start: 01-19-2024 End: 01-19-2024 Patient encounter status Leslie Mejia MD Work Phone: [facility] Start: 11-13-2023 End: 11-13-2023 Emergency department patient visit Leslie Mejia Facility:[facility] Start: 11-13-2023 End: 11-13-2023 Emergency department patient visit [facility]Emergency Department Work Phone: Start: 10-29-2023 Refill Leslie mtz MD Work Phone: [facility] [place] Comment on above: Refill Request Start: 07-29-2023 End: 07-29-2023 ambulatory LESLIE MEJIA Facility:[facility] Start: 07-29-2023 End: 07-29-2023 Patient encounter procedure Leslie Mejia MD Work Phone: [facility] Comment on above: Local infection of s kin and subcutaneous tissue (Primary Dx); Attention deficit hyperactivity disorder (ADHD), combined type Start: 06-12-2023 End: 06-12-[address] [facility] [place]: 06-12-2023 End: 06-12-[address] Leslie Mejia Work Phone: [facility] Work Phone: Start: 06-10-2023 End: 06-10-[address] Leslie Mejia Work Phone: [facility] Work Phone: Start: 06-10-2023 End: 06-10-[address] Leslie Mejia Work Phone: [facility]-Radiology, [facility] Work Phone: Start: 04-04-2023 Refill Leslie mtz MD Work Phone: [facility] Comment on above: Refill Request Start: 03-02-2023 Refill Leslie mtz MD Work Phone: [facility] Comment on above: Refill Request Start: 02-26-2023 Refill Leslie mtz MD Work Phone: [facility] [place] Comment on above: Refill Request Start: 01-06-2023 End: 01-06-2023 Patient encounter procedure Lani Woodward MD Work Phone: [facility] Comment on above: H/O unilateral orchi ectomy Start: 01-03-2023 Refill Leslie mtz MD Work Phone: [facility] [place] Comment on above: Refill Request Start: 11-25-2022 End: 11-25-2022 Patient encounter procedure Leslie Mejia MD Work Phone: [facility] [place] Comment on above: Attention deficit hy peractivity disorder (ADHD), combined type (Primary Dx) Start: 11-14-2022 Telephone encounter Leslie chen MD Work Phone: [facility] [place] Comment on above: Missed Appointment Start: 11-06-2022 Refill Leslie mtz MD Work Phone: [facility] [place] Comment on above: Refill Request Start: 05-21-2022 End: 05-22-2022 [facility] Start: 05-16-2022 End: 05-16-2022 Patient encounter procedure Leslie Mejia MD Work Phone: [facility] [place] Comment on above: Encounter for routin e child health examination without abnormal findings (Primary Dx); Encounter for immunization; Attention deficit hyperactivity disorder (ADHD), combined type; H/O unilateral orchiectomy Start: 05-16-2022 End: 05-16-2022 Patient encounter status Leslie Mejia MD Work Phone: [facility] Procedures Date Procedure Procedure Detail Performing Clinician Start: 01-19-2024 Screening test visua l acuity quantitative bilat Leslie Mejia MD Work Phone: Start: 06-10-[address]23 MRI arthrography of shoulder Dr. Leslie Mejia Work Phone: Start: 06-10-2023 MRI of joint of uppe r extremity Dr. Leslie Mejia Work Phone: Start: 11-25-2022 Adult depression scr eening assessment Leslie Mejia MD Work Phone: Start: 05-21-2022 Computed tomography of abdomen and pelvis with contrast Start: 05-16-2022 Menacwy-tt conj vacc serogroups acwy for im use Leslie Mejia MD Work Phone: Start: 05-16-2022 Adult depression scr eening assessment Leslie Mejia MD Work Phone: Plan of Treatment Date Care Activity Detail Author Start: 07-08-2028 Urine microalbumin profile [facility] Start: 05-30-2024 Influenza vaccination C [facility] Start: 05-06-2024 End: 08-05-2024 C reactive protein [Mass/volume] in Serum or Plasma [facility] Comment on above: Expected: 05/06/2024 , Expires: 08/05/2024 Start: 05-06-2024 End: 08-05-2024 CBC W Auto Differential panel - Blood [facility] Comment on above: Expected: 05/06/2024 , Expires: 08/05/2024 Start: 05-06-2024 End: 08-05-2024 Comprehensive metabolic 2000 panel - Serum or Plasma [facility] Comment on above: Expected: 05/06/2024 , Expires: 08/05/2024 Start: 05-06-2024 End: 08-05-2024 Tomas De Oliveira virus capsid IgG Ab [Units/volume] in Serum [facility] Comment on above: Expected: 05/06/2024 , Expires: 08/05/2024 Start: 05-06-2024 End: 08-05-2024 Tomas De Oliveira virus capsid IgM Ab [Units/volume] in Serum [facility] Comment on above: Expected: 05/06/2024 , Expires: 08/05/2024 Start: 05-06-2024 End: 08-05-2024 Erythrocyte sedimentation rate [facility] Comment on above: Expected: 05/06/2024 , Expires: 08/05/2024 Start: 05-06-2024 End: 08-05-2024 Ferritin [Mass/volume] [facility] Work Phone: Comment on above: Expected: 05/06/2024 , Expires: 08/05/2024 Start: 05-06-2024 End: 08-05-2024 Iron and Iron binding capacity panel - Serum or Plasma [facility] Comment on above: Expected: 05/06/2024 , Expires: 08/05/2024 Start: 05-06-2024 End: 08-05-2024 Thyrotropin [Units/volume] in Serum or Plasma [facility] Comment on above: Expected: 05/06/2024 , Expires: 08/05/2024 Start: 05-06-2024 End: 08-05-2024 Thyroxine (T4) free [Mass/volume] in Serum or Plasma [facility] Comment on above: Expected: 05/06/2024 , Expires: 08/05/2024 Start: 11-25-2023 Adult depression screening assessment DEPRESSION SCREENING [facility] Start: 09-29-2023 Behavioral Health Screening Behavioral Health Screening [facility] Start: 09-29-2023 Depression Assessment Depression Ass essment [facility] Start: 2023 Anxiety Screening Anxiety Screening [facility] Start: 2023 Depression Screening Depression Scre ening [facility] Start: 2023 Hepatitis C Screening Hepatitis C [facility] Start: 2023 Hepatitis C screening Hepatitis C [facility] Start: 2023 HIV Screening HIV Screening [facility] Start: 2023 HIV screening HIV Screening [facility] Start: 06-10-2023 Injection shoulder arthrography/ ct/mri arthg INJECTION FOR SHOULDER X-RAY [facility] Start: 05-30-2023 Covid-19 Vaccine ( season) Covid-19 Vaccine ( season) [facility] Start: 05-30-2023 Influenza vaccination [facility] Start: 05-16-2023 Adult depression screening assessment DEPRESSION SCREENING [facility] Start: 09-29-2022 Depression [facility] Start: 05-30-2022 Influenza vaccination INFLUENZA (#1) [facility] Start: 2021 Meningococcal B Vacc ine: Consider Based On Risk (1 of 2 - Patient Seeks Protection) Meningococcal B Vaccine: Consider Based On Risk (1 of 2 - Patient Seeks Protection) [facility] Start: 2019 PEDS TO ADULT TRANSI TION ANNUAL ASSESSMENT PEDS TO ADULT TRANSITION ANNUAL ASSESSMENT [facility] Start: 2017 PEDS TO ADULT TRANSI TION INITIAL DISCUSSION PEDS TO ADULT TRANSITION INITIAL DISCUSSION [facility] Start: 2015 MENINGOCOCCAL B: Consider based on risk (1 of 2 - Risk Bexsero 2-dose series) MENINGOCOCCAL B: Consider based on risk (1 of 2 - Risk Bexsero 2-dose series)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 Date Comments Refill Request 04/04/2023 Reason Comments possible infection on left thumb Reason Onset Date Comments Refill Request 10/29/2023 Reason Comments Well Child Reason Comments Fatigue X 2 months Would lik e labs Reason Comments Results Care Teams (unrecognized sec tion and content) 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 Relationship Specialty Start Date End Date Leslie Mejia MD [address] [place] [address] PCP - General 09/26/09 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 Relationship Specialty Start Date End Date Leslie Mejia MD [address] [place] [address] PCP - General 09/26/09 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 Relationship Specialty Start Date End Date Leslie Mejia MD [address] [place] [address] PCP - General 09/26/09 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 Relationship Specialty Start Date End Date Leslie Mejia MD [address] [place] [address] PCP - General 09/26/09 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 Leslie Mejia MD Family Provider Active Dr. Leslie Mejia MD Primary Care Provider Active Team Status: Inactive Member Role Status Dates Dr. Leslie Mejia MD Primary Care Provider, Referr ing Provider Active Akhil Banerjee MD Attending Provider Active Team Status: Inactive Member Role Status Dates Dr. Leslie Mejia MD Primary Care Provider Active Dr. 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 Leslie Mejia MD Primary Care Provider Active Dr. 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 Relationship Specialty Start Date End Date Leslie Mejia MD [address] [place] [address] PCP - General 09/26/09 Goals (unrecognized section and content) Goals may be documented in a n alternate sectionGoals may be documented in an alternate sectionGoals may be documented in an alternate section (unrecognized sect ion and content) No Status Records FoundNo Status Records Found INFORMATION SOURCE (unrecogn ized section and content) DATE CREATED AUTHOR 11/26/2023 [facility] DATE CREATED AUTHOR AUTHOR'S ORGANIZ ATION 05/16/2024 [facility] FOR RECORDS PERTAINING TO PATIENTS WHO ARE OR HAVE BEEN ENROLLED IN A CHEMICAL DEPENDENCY/SUBSTANCEABUSE PROGRAM, SOME INFORMATION MAY BE OMITTED. This clinical summary was aggregated from multiple sources. Caution should be exercised in using it in the provision of clinical care. This summary normalizes information from multiple sources, and as a consequence, information in this document may materially change the coding, format and clinical context of patient data. In addition, data may be omitted in some cases. CLINICAL DECISIONS SHOULD BE BASED ON THE PRIMARY CLINICAL RECORDS. [facility]. provides no warranty or guarantee of the accuracy or completeness of information in this document.
[2025-08-28 23:10] VITALS: BP 128/94; PULSE 63; RESP 17; O2SAT 97
[2025-08-28 23:13] LABS: Anion Gap 9 (5-15); BUN 11 mg/dL (4-19); BUN/Creat Ratio 9.8 RATIO (10-20); Calcium,Total 9.3 mg/dL (7.6-11.0); Carbon Dioxide 28.1 mmol/L (21.0-32.0); Chloride 103 mmol/L (98-108); Estimated Creatinine Clearance 109.88 ml/min (50-250); Glucose 109 mg/dL (70-99); Potassium 4.1 mmol/L (3.3-5.1); Troponin T High Sensitivity 6 ng/L (<=22)
[2025-08-28 23:59] LABS: D-Dimer Quantitative (DVT/PE) < 0.27 FEU/ug/m (0.27-0.49)
[2025-08-29] VITALS: BP 128/80; PULSE 71; RESP 17; O2SAT 96
[2025-08-29 00:16] VITALS: BP 131/75; PULSE 65; RESP 17; TEMP 36.6; O2SAT 98
== END 2025-08-29 00:19 | disposition home or self-care (01) ==
PROVIDERS: Emergency Provider Emergency Medicine; Visit Provider Emergency Medicine
DX: R07.9 Chest pain, unspecified (principal); R06.02 Shortness of breath
CPT/HCPCS: 71046; 80048; 84484; 85025; 85379; 93005; 99284